=== PATIENT | female | born 1970 | race Caucasian/White ===

== ENCOUNTER → 2016-09-11 | Outpatient (CLI) | payer BC ==
--- NOTE | 2016-09-11 16:23 | DIAGNOSTIC IMAGING REPORT ---
PELVIC COMPLETE NON OB CLINICAL HISTORY: PELVIC PAIN PAIN COMPARISON STUDY: None FINDINGS: The uterus measured 11 cm. Small uterine fibroid measuring 1.5 cm The endometrial stripe measured 1.1 cm. The right ovary measured 3.5 cm with normal vascular flow. The left ovary measured 3.7 cm with normal vascular flow. 2.5 segment left ovarian cyst. There is no ultrasonographic evidence of ovarian torsion. It should be noted that ovarian torsion can be present with normal Doppler ultrasonographic findings. There was no evidence of pathologic free pelvic fluid. IMPRESSION: 1. 2.5 cm left ovarian cyst. 2. Small uterine fibroid. 3. Otherwise negative study The above report was generated using voice recognition software. It may contain grammatical, syntax or spelling errors. Electronically signed by: Israel Capellan M.D. 09/11/2016 4:22 PM Dictated Date/Time: 09/11/2016 4:21 PM
== END | disposition home or self-care (01) ==
LOC: C.ULTR 15:22
PROVIDERS: ATTEND Nurse Practitioner
DX: R10.2 Pelvic and perineal pain (principal)

== ENCOUNTER 2017-07-11 17:45 | Inpatient (IN) | payer OTHER ==
[~2017-07-11] VITALS: Ht 160 cm; Wt 81.8 kg
[2017-07-11 21:50] VITALS: Ht 160 cm; Wt 81.8 kg
--- NOTE | 2017-07-11 22:17 | Pre-Operative Consultation ---
History General Date of Service: July 11, 2017. HPI HPI: The patient is a 47 year old female being seen for for incarcerated incisional hernia. She has had hernia chronically after midline incision for appendectomy years ago. She began having left side abdominal pain beginning yesterday associated with nausea without vomiting. She has had chronic pain from a left ovarian cyst and thought this episode was from the cyst. She has no urinary symptoms. A CT scan shows a loop of colon in her incisional hernia. Historian: patient Procedure Urgency: Acute Risk Assessment Daily beta mendy use?: No Medical & Surgical History Past Medical History: anxiety, ovarian cyst (L) Past Surgical History: adenoidectomy, appendectomy, cholecystectomy, tonsillectomy, tubal ligation Family History Family History: no pertinent family hx Social History Hx Tobacco Use In Past Year?: No Smoking Status: Never Smoker Alcohol: occasionally Drug Use: none Housing status: lives with family Allergies Allergies: Coded Allergies: Codeine (Verified Allergy, Intermediate, GI SYMPTOMS, 07/11/17) nausea Uncoded Allergies: N (Allergy, Unknown, 04/08/02) NKA (Allergy, Unknown, 04/08/02) Review of Systems Review of Systems Constitutional: denies chills, denies diaphoresis, denies fever, denies weakness Eyes: reports: no symptoms ENT: reports: no symptoms reported Cardiovascular: denies: chest pain, chest tightness, chest pressure, palpitations, syncope Respiratory: denies: cough, orthopnea, short of breath, stridor, cyanosis Gastrointestinal: abdominal pain, denies constipation, denies diarrhea, nausea , denies vomiting Genitourinary - Female: reports: no symptoms Musculoskeletal: denies back pain, denies joint pain, denies joint swelling, denies muscle stiffness, denies neck pain Integumentary: denies change in hair/nails, denies dryness, denies lumps, denies rash Neurologic: reports: no symptoms Psychiatric: reports: anxiety Endocrine: no symptoms Hematologic / Lymphatic: no symptoms Allergic / Immunologic: no symptoms Physical Exam Physical Exam General Appearance: + WD/WN, No distress Ears, Nose, Throat: + normal ENT inspection Neck: No abnormal inspection, No tracheal deviation, No lymphadenophy, No stiffness, No tenderness Respiratory: No chest tenderness, No decreased breath sounds, No rhonchi, No stridor, No wheezing Cardiovascular: No tachycardia, No gallop/S3, No diastolic murmur, No gallop/S4 , No bradycardia, No systolic murmur Abdomen: + tenderness (mild), + hernia, + other (hernia reduced), No abnormal bowel sounds, No distension Extremities: No deformity, No swelling, No calf tenderness, No inflammation Neurologic/Psychiatric: No motor deficit/weakness, No disorientation, No sensory deficit Skin Characteristics: No abnormal color, No diaphoresis, No pallor, No jaundice , No rash Impression Assessment and Plan Assessment and Plan IIncisional hernia -IVF -NPO -would likely recommend outpatient reoair if does well clinically -KUB in AM
[2017-07-11 22:35] VITALS: BP 121/85; PULSE 69; TEMP 36.7; O2SAT 97
[2017-07-11] MEDS ORDERED: IBUP-103 PO (22:50)
[2017-07-11] MEDS ORDERED: ULT50 PO (22:50)
[2017-07-11] MEDS ORDERED: LORAZEPAM INJ 0.5 MG in SYRINGE 0.75 ML IV PRN (23:00)
[2017-07-11] MEDS ORDERED: ACETAMINOPHEN 325 MG TAB PO PRN (23:00)
[2017-07-11] MEDS ORDERED: TRAMADOL HCL 50 MG TAB PO PRN (23:00)
[2017-07-11] MEDS ORDERED: PROCHLORPERAZINE INJ 5 MG in SYRINGE 4 ML IV PRN (23:00)
[2017-07-11] MEDS ORDERED: LORAZEPAM 2 MG/ML 1 ML VIAL IV PRN (23:00)
[2017-07-11] MEDS: NSS + 20MEQ KCL 1000ML 1,000 ML IV SCH (23:18)
[2017-07-12] MEDS: KETOROLAC TROMETHAMINE 30 MG/ML VIAL IV PRN (01:40)
--- NOTE | 2017-07-12 06:38 | HISTORY & PHYSICAL EXAMINATION ---
DATE OF ADMISSION: 07/11/2017 PRIMARY CARE PHYSICIAN: Dr. Henderson. CHIEF COMPLAINT: Incarcerated hernia. HISTORY OF PRESENT ILLNESS: History obtained from patient and records. Medical history significant for past tobacco abuse. Today patient had achy left-sided abdominal pain. Thought it was her ovarian cyst for which she takes OCPs. Worse than usual. Some nausea, no emesis. Patient seen at [facility]. A CAT scan of the abdomen and pelvis showed a 3 cm left lower quadrant spigelian hernia containing loop of descending colon, no obstruction, mild inflammation. Incarceration should be considered. Enlarging uterine masses. Patient transferred to [facility] for Surgery evaluation. Patient currently comfortable in the room. MEDICAL HISTORY: As above. SURGERIES: She has had appendectomy, tonsillectomy, tubal ligation, varicose vein surgery. HOME MEDICATIONS: Include Ultram, Sprintec, multivitamins. ALLERGIES: ALLERGIC TO CODEINE. FAMILY HISTORY: There is a family history of migraine, diabetes. PERSONAL AND SOCIAL HISTORY: Past tobacco use. No current ETOH intake, kiln stoker. REVIEW OF SYSTEMS: As per HPI, all 10 systems reviewed. All other ROS negative. PHYSICAL EXAMINATION: VITAL SIGNS: Blood pressure was noted to be 121/85, pulse rate 90, RR 18 T 37 O2 sats 94 room air. GENERAL: Noted to be pleasant, no respiratory distress, obese. SKIN: Normal color, warm. HEENT: [place] palpebral conjunctivae. No ptosis. Dry mucosa. NECK: Short, supple. CHEST: Decreased effort. No tenderness HEART: Regular rate and rhythm, no murmur. ABDOMEN: Some distention, abdominal striae noted, minimal left lower quadrant tenderness EXTREMITIES: Minimal LE edema. No tenderness. No other gross deformities NEUROLOGIC: Coherent. No gross focality. LABORATORY DATA: Labs from [facility] (07/11/17) hemoglobin 14, hematocrit 39.2, white blood cell count 5.8, platelets 249. Sodium noted to be 139, potassium 3.7, chloride 107, CO2 of 25, creatinine 0.8, glucose 102. LFTs normal, lipase normal. UA, negative WBC. CT abdomen and pelvis as above ASSESSMENT: 1. Abdominal pain, possible incarcerated hernia on CT. Patient is currently comfortable. 2. Ovarian cyst, on OCP 3. past tobacco abuse. PLAN: [facility] analgesia Surgery eval. RE abd pain, abn CT (Patient already seen by Dr. Varma, surgeon concrete rubber. He recommends NPO status for now, repeat KUB x-ray in AM) DVT prophylaxis, SCDs RE possible surgery. Full code. MTDD
[2017-07-12 07:48] VITALS: BP 111/75; PULSE 75; TEMP 37; O2SAT 96
[2017-07-12 08:40] LABS: EOS ABS # 0.04 K/uL (0-0.5); HEMATOCRIT 34.9 % (37-47); HEMOGLOBIN 11.8 g/dL (12.0-16.0); LYMPH % 24.5 %; LYMPH ABS # 0.95 K/uL (1.2-3.4); MEAN CELL VOLUME 88.8 fL (80-100); MEAN CORPUSCULAR HGB CONC 33.8 g/dl (32-36); MEAN PLATELET VOLUME 10.5 fL (7.4-10.4); MONO % 6.4 %; MONO ABS # 0.25 K/uL (0.11-0.59); NEUT % 68.1 %; NEUT ABS # 2.64 K/uL (1.4-6.5); PLATELET COUNT 195 K/uL (130-400); RED CELL DISTRIBUTION WIDTH SD 42.1 fL (36.4-46.3); WHITE BLOOD COUNT 3.88 K/uL (4.8-10.8)
--- NOTE | 2017-07-12 08:49 | DIAGNOSTIC IMAGING REPORT ---
KUB HISTORY: Small bowel obstruction. COMPARISON: None. FINDINGS: The bowel gas pattern is unremarkable. There are no dilated loops of small bowel to suggest an obstruction. No renal calculi. No ureteral calculi. No pneumoperitoneum or pneumatosis. Prior cholecystectomy. Moderate well-formed stool seen within the proximal colon. IMPRESSION: Unremarkable bowel gas pattern. No evidence for bowel obstruction. Electronically signed by: Bala Diop M.D. 07/12/2017 8:48 AM Dictated Date/Time: 07/12/2017 8:47 AM
[2017-07-12 09:19] LABS: CALCIUM 8.1 mg/dl (8.5-10.1); CREATININE 0.59 mg/dl (0.60-1.20); POTASSIUM 3.8 mmol/L (3.5-5.1)
--- NOTE | 2017-07-12 09:34 | Surgery Progress Note ---
Surgery Progress Note Date of Service July 12, 2017. Subjective Post OP Day: HD 2 + feeling well, + complaints (pain resolving), + flatus, + diet (npo), No nausea , No vomiting Objective Vital Signs: Date Time Temp Pulse Resp B/P (MAP) Pulse Ox O2 Delivery O2 Flow Rate FiO2 07/12/17 08:05 Room Air 07/12/17 07:48 37.0 75 18 111/75 (87) 96 Room Air 07/11/17 23:15 Room Air 07/11/17 22:35 36.7 69 17 121/85 (97) 97 Room Air 07/11/17 21:50 Room Air General Appearance: WD/WN, no apparent distress Head: normocephalic, atraumatic Neck: supple, trachea midline Respiratory/Chest: lungs clear Cardiovascular: regular rate, rhythm, no gallop, no murmur Abdomen: normal bowel sounds, non distended, soft, + tenderness (mild), + pertinent finding (reducible hernias) Extremities: non-tender, no pedal edema Laboratory Results: Results Past 24 Hours Test 07/12/17 08:15 Range/Units White Blood Count 3.88 4.8-10.8 K/uL Red Blood Count 3.93 4.2-5.4 M/uL Hemoglobin 11.8 12.0-16.0 g/dL Hematocrit 34.9 37-47 % Mean Corpuscular Volume 88.8 80-100 fL Mean Corpuscular Hemoglobin 30.0 25-34 pg Mean Corpuscular Hemoglobin Concent 33.8 32-36 g/dl Platelet Count 195 130-400 K/uL Mean Platelet Volume 10.5 7.4-10.4 fL Neutrophils (%) (Auto) 68.1 % Lymphocytes (%) (Auto) 24.5 % Monocytes (%) (Auto) 6.4 % Eosinophils (%) (Auto) 1.0 % Basophils (%) (Auto) 0.0 % Neutrophils # (Auto) 2.64 1.4-6.5 K/uL Lymphocytes # (Auto) 0.95 1.2-3.4 K/uL Monocytes # (Auto) 0.25 0.11-0.59 K/uL Eosinophils # (Auto) 0.04 0-0.5 K/uL Basophils # (Auto) 0.00 0-0.2 K/uL RDW Standard Deviation 42.1 36.4-46.3 fL RDW Coefficient of Variation 13.0 11.5-14.5 % Immature Granulocyte % (Auto) 0.0 % Immature Granulocyte # (Auto) 0.00 0.00-0.02 K/uL Sodium Level 141 136-145 mmol/L Potassium Level 3.8 3.5-5.1 mmol/L Chloride Level 112 98-107 mmol/L Carbon Dioxide Level 22 21-32 mmol/L Anion Gap 7.0 3-11 mmol/L Blood Urea Nitrogen 9 7-18 mg/dl Creatinine 0.59 0.60-1.20 mg/dl Est Creatinine Clear Calc Drug Dose 118.1 ml/min Estimated GFR () 125.6 Estimated GFR (Non- 108.4 BUN/Creatinine Ratio 15.5 10-20 Random Glucose 86 70-99 mg/dl Calcium Level 8.1 8.5-10.1 mg/dl Magnesium Level 1.8 1.8-2.4 mg/dl Thyroid Stimulating Hormone (TSH) 2.140 0.300-4.500 uIu/ml Assessment & Plan incisional hernia; incarcerated ann marie reduced -begin diet -can fix this hospitalization early in the week or can see as outpatient -progress; worry alittle about re-incarceration if discharge
[2017-07-12] MEDS: NSS + 20MEQ KCL 1000ML 1,000 ML IV SCH (13:04)
[2017-07-12 15:09] VITALS: BP 111/72; PULSE 68; TEMP 36.8; O2SAT 97
[2017-07-12] MEDS ORDERED: DiphenhydrAMINE INJ 12.5 MG in SYRINGE 0 ML IV PRN (16:00)
--- NOTE | 2017-07-12 16:06 | Progress Note ---
Internal Med Progress Note Date of Service: July 12, 2017. Provider Documentation: SUBJECTIVE: No acute distress. Patient denies acute abdominal pain. Patient denies vomiting today. Denies problems with bowel movements or with urination. Patient reports that the redness on her face is new with some itching. The redness of the face ( rash) was present this AM but patient reports that it did not seem noticeable to her until now in the afternoon. Patient denies history of acne. OBJECTIVE: Exam: General- no acute distress Face - face has redness and bumps similar to rosacea or acne Eyes-EOMI ENT-nontender, no rash of neck Lungs- CTABL, no wheezing Heart- Regular rate Abdomen-soft, nontender, + bowel sounds, no apparent palpable hernia on exam but patient points that the problem is left lower quadrant of abdomen towards the groin from before Extremities- no edema Neuro- awake and alert ASSESSMENT & PLAN: This is a 47 year old Patient who was transferred from [facility] with concerns of hernia complication such as incarceration Patient was admitted by night time hospitalist Patient had KUB performed on 07/12/17 in the AM and rather unremarkable imaging The bowel gas pattern is unremarkable. There are no dilated loops of small bowel to suggest an obstruction. No renal calculi. No ureteral calculi. No pneumoperitoneum or pneumatosis. Prior cholecystectomy. Moderate well-formed stool seen within the proximal colon. When assessed by hospitalist today patient did not have obvious abdominal discomfort and the the hernia is not palpable on physical exam. Patient was seen by General surgery and there are no definitive plans for hernia repair at this time. Will continue to provider supportive care to the patient if further abdominal symptoms and General surgery continues to follow. Patient also noted to have rash of the face since the AM of 07/12/17. May be drug related rash. Patient reports receiving morphine and Tramadol from [facility]. No active morphine on current medication list. Will hold Tramadol at this time. Continue other medications for pain control such as acetaminophen and Toradol. Give Compazine prn if nausea. Ideally if patient continues to be comfortable, can remove compazine to remove further variable of possible medications side effects. Give Benadryl to treat face rash or itch Diet advanced DVT ppx with SCD Vital Signs: Date Time Temp Pulse Resp B/P (MAP) Pulse Ox O2 Delivery O2 Flow Rate FiO2 07/12/17 15:30 Room Air 07/12/17 15:09 36.8 68 16 111/72 (85) 97 Room Air 07/12/17 08:05 Room Air 07/12/17 07:48 37.0 75 18 111/75 (87) 96 Room Air 07/11/17 23:15 Room Air 07/11/17 22:35 36.7 69 17 121/85 (97) 97 Room Air 07/11/17 21:50 Room Air Lab Results: Results Past 24 Hours Test 07/12/17 08:15 Range/Units White Blood Count 3.88 4.8-10.8 K/uL Red Blood Count 3.93 4.2-5.4 M/uL Hemoglobin 11.8 12.0-16.0 g/dL Hematocrit 34.9 37-47 % Mean Corpuscular Volume 88.8 80-100 fL Mean Corpuscular Hemoglobin 30.0 25-34 pg Mean Corpuscular Hemoglobin Concent 33.8 32-36 g/dl Platelet Count 195 130-400 K/uL Mean Platelet Volume 10.5 7.4-10.4 fL Neutrophils (%) (Auto) 68.1 % Lymphocytes (%) (Auto) 24.5 % Monocytes (%) (Auto) 6.4 % Eosinophils (%) (Auto) 1.0 % Basophils (%) (Auto) 0.0 % Neutrophils # (Auto) 2.64 1.4-6.5 K/uL Lymphocytes # (Auto) 0.95 1.2-3.4 K/uL Monocytes # (Auto) 0.25 0.11-0.59 K/uL Eosinophils # (Auto) 0.04 0-0.5 K/uL Basophils # (Auto) 0.00 0-0.2 K/uL RDW Standard Deviation 42.1 36.4-46.3 fL RDW Coefficient of Variation 13.0 11.5-14.5 % Immature Granulocyte % (Auto) 0.0 % Immature Granulocyte # (Auto) 0.00 0.00-0.02 K/uL Sodium Level 141 136-145 mmol/L Potassium Level 3.8 3.5-5.1 mmol/L Chloride Level 112 98-107 mmol/L Carbon Dioxide Level 22 21-32 mmol/L Anion Gap 7.0 3-11 mmol/L Blood Urea Nitrogen 9 7-18 mg/dl Creatinine 0.59 0.60-1.20 mg/dl Est Creatinine Clear Calc Drug Dose 118.1 ml/min Estimated GFR () 125.6 Estimated GFR (Non- 108.4 BUN/Creatinine Ratio 15.5 10-20 Random Glucose 86 70-99 mg/dl Calcium Level 8.1 8.5-10.1 mg/dl Magnesium Level 1.8 1.8-2.4 mg/dl Thyroid Stimulating Hormone (TSH) 2.140 0.300-4.500 uIu/ml
[2017-07-12] MEDS: SODIUM CHLORIDE 0.9% 1000ML 1,000 ML IV SCH (16:15)
[2017-07-12] MEDS: DiphenhydrAMINE HCL 50 MG/ML VIAL IV PRN (23:14)
[2017-07-12 23:17] VITALS: BP 95/60; PULSE 67; TEMP 37; O2SAT 97
[2017-07-13] MEDS: SODIUM CHLORIDE 0.9% 1000ML 1,000 ML IV SCH ×2 (03:27→19:43)
[2017-07-13 07:22] VITALS: BP 121/77; PULSE 73; TEMP 37; O2SAT 97
[2017-07-13 07:59] LABS: BASO % 0.2 %; BASO ABS # 0.01 K/uL (0-0.2); EOS % 1.2 %; EOS ABS # 0.05 K/uL (0-0.5); HEMATOCRIT 36.3 % (37-47); HEMOGLOBIN 12.2 g/dL (12.0-16.0); IG# 0.01 K/uL (0.00-0.02); LYMPH % 26.4 %; LYMPH ABS # 1.12 K/uL (1.2-3.4); MEAN CELL VOLUME 90.3 fL (80-100); MEAN CORPUSCULAR HEMOGLOBIN 30.3 pg (25-34); MEAN PLATELET VOLUME 10.5 fL (7.4-10.4); MONO % 3.3 %; MONO ABS # 0.14 K/uL (0.11-0.59); NEUT % 68.7 %; NEUT ABS # 2.92 K/uL (1.4-6.5); PLATELET COUNT 206 K/uL (130-400); RED CELL DISTRIBUTION WIDTH SD 43.5 fL (36.4-46.3); WHITE BLOOD COUNT 4.25 K/uL (4.8-10.8)
[2017-07-13 08:14] LABS: MEAN CORPUSCULAR HGB CONC 33.6 g/dl (32-36)
[2017-07-13 08:20] LABS: ALBUMIN 3.1 gm/dl (3.4-5.0); CALCIUM 7.9 mg/dl (8.5-10.1); CREATININE 0.63 mg/dl (0.60-1.20); POTASSIUM 3.9 mmol/L (3.5-5.1); TOTAL PROTEIN 6.1 gm/dl (6.4-8.2)
[2017-07-13 08:30] VITALS: O2SAT 97
[2017-07-13] MEDS: MAGNESIUM SULFATE 1GM / D5W 100 ML IV SCH ×2 (09:39→11:43)
--- NOTE | 2017-07-13 11:48 | Surgery Progress Note ---
Surgery Progress Note Date of Service July 13, 2017. Subjective Post OP Day: HD 3 + feeling well, + complaints (some pain), + flatus, No nausea, No vomiting Objective Vital Signs: Date Time Temp Pulse Resp B/P (MAP) Pulse Ox O2 Delivery O2 Flow Rate FiO2 07/13/17 07:22 37.0 73 18 121/77 (92) 97 Room Air 07/12/17 23:17 37.0 67 14 95/60 (72) 97 Room Air 07/12/17 20:10 Room Air 07/12/17 15:30 Room Air 07/12/17 15:09 36.8 68 16 111/72 (85) 97 Room Air General Appearance: WD/WN, no apparent distress Head: normocephalic, atraumatic Neck: supple Respiratory/Chest: chest non-tender, lungs clear Cardiovascular: regular rate, rhythm, no gallop, no murmur Abdomen: normal bowel sounds, non distended, soft, + tenderness (mild) Extremities: normal range of motion, no pedal edema Laboratory Results: Results Past 24 Hours Test 07/13/17 07:45 Range/Units White Blood Count 4.25 4.8-10.8 K/uL Red Blood Count 4.02 4.2-5.4 M/uL Hemoglobin 12.2 12.0-16.0 g/dL Hematocrit 36.3 37-47 % Mean Corpuscular Volume 90.3 80-100 fL Mean Corpuscular Hemoglobin 30.3 25-34 pg Mean Corpuscular Hemoglobin Concent 33.6 32-36 g/dl Platelet Count 206 130-400 K/uL Mean Platelet Volume 10.5 7.4-10.4 fL Neutrophils (%) (Auto) 68.7 % Lymphocytes (%) (Auto) 26.4 % Monocytes (%) (Auto) 3.3 % Eosinophils (%) (Auto) 1.2 % Basophils (%) (Auto) 0.2 % Neutrophils # (Auto) 2.92 1.4-6.5 K/uL Lymphocytes # (Auto) 1.12 1.2-3.4 K/uL Monocytes # (Auto) 0.14 0.11-0.59 K/uL Eosinophils # (Auto) 0.05 0-0.5 K/uL Basophils # (Auto) 0.01 0-0.2 K/uL RDW Standard Deviation 43.5 36.4-46.3 fL RDW Coefficient of Variation 13.0 11.5-14.5 % Immature Granulocyte % (Auto) 0.2 % Immature Granulocyte # (Auto) 0.01 0.00-0.02 K/uL Sodium Level 140 136-145 mmol/L Potassium Level 3.9 3.5-5.1 mmol/L Chloride Level 109 98-107 mmol/L Carbon Dioxide Level 26 21-32 mmol/L Anion Gap 6.0 3-11 mmol/L Blood Urea Nitrogen 7 7-18 mg/dl Creatinine 0.63 0.60-1.20 mg/dl Est Creatinine Clear Calc Drug Dose 110.6 ml/min Estimated GFR () 122.9 Estimated GFR (Non- 106.1 BUN/Creatinine Ratio 11.0 10-20 Random Glucose 128 70-99 mg/dl Calcium Level 7.9 8.5-10.1 mg/dl Magnesium Level 1.8 1.8-2.4 mg/dl Total Bilirubin 0.3 0.2-1 mg/dl Aspartate Amino Transf (AST/SGOT) 18 15-37 U/L Alanine Aminotransferase (ALT/SGPT) 31 12-78 U/L Alkaline Phosphatase 57 45-117 U/L Total Protein 6.1 6.4-8.2 gm/dl Albumin 3.1 3.4-5.0 gm/dl Globulin 3.0 2.5-4.0 gm/dl Albumin/Globulin Ratio 1.0 0.9-2 Assessment & Plan incisional hernia; incarcerated now reduced -NPO past [place] -open incisional hernia tomorrow -medically cleared -Dr Jose will see in AM
[2017-07-13 14:00] VITALS: BP 144/76; PULSE 72; TEMP 37.2; O2SAT 94
[2017-07-13 15:15] VITALS: BP 118/76; PULSE 66; TEMP 36.8; O2SAT 97
[2017-07-13] MEDS ORDERED: NURSING VERBAL MED ORDER ONE (20:00)
--- NOTE | 2017-07-13 20:10 | Progress Note ---
Internal Med Progress Note Date of Service: July 13, 2017. Provider Documentation: SUBJECTIVE: No acute distress. Patient denies acute abdominal pain. Patient reports that the facial rash has improved OBJECTIVE: Exam: General- no acute distress Face - face has redness and bumps similar to rosacea or acne with less redness today Eyes-EOMI ENT-nontender, no rash of neck Lungs- CTABL, no wheezing Heart- Regular rate Abdomen-soft, nontender, + bowel sounds, no apparent palpable hernia on exam Extremities- no edema Neuro- awake and alert ASSESSMENT & PLAN: This is a 47 year old Patient who was transferred from [facility] with concerns of hernia complication such as incarceration Patient had KUB performed on 07/12/17 in the AM and rather unremarkable imaging The bowel gas pattern is unremarkable. There are no dilated loops of small bowel to suggest an obstruction. No renal calculi. No ureteral calculi. No pneumoperitoneum or pneumatosis. Prior cholecystectomy. Moderate well-formed stool seen within the proximal colon. In the past 2 days when assessed by hospitalist, patient has not been in acute abdominal discomfort and hernia is not palpable General surgery now has Patient NPO after midnight for open incisional hernia tomorrow for diagnosis of (incisional hernia; incarcerated now reduced) Patient also noted to have rash of the face since the AM of 07/12/17. May be drug related rash. Patient reports receiving morphine and Tramadol from [facility]. No active morphine on current medication list. Tramadol held at this time. Continue other medications for pain control such as acetaminophen and Toradol. Hold Compazine Benadryl to treat face rash or itch incisional hernia; incarcerated now reduced DVT ppx with SCD Vital Signs: Date Time Temp Pulse Resp B/P (MAP) Pulse Ox O2 Delivery O2 Flow Rate FiO2 07/13/17 16:00 Room Air 07/13/17 15:15 36.8 66 17 118/76 (90) 97 Room Air 07/13/17 08:30 97 Room Air 07/13/17 07:22 37.0 73 18 121/77 (92) 97 Room Air 07/12/17 23:17 37.0 67 14 95/60 (72) 97 Room Air 07/12/17 20:10 Room Air Lab Results: Results Past 24 Hours Test 07/13/17 07:45 Range/Units White Blood Count 4.25 4.8-10.8 K/uL Red Blood Count 4.02 4.2-5.4 M/uL Hemoglobin 12.2 12.0-16.0 g/dL Hematocrit 36.3 37-47 % Mean Corpuscular Volume 90.3 80-100 fL Mean Corpuscular Hemoglobin 30.3 25-34 pg Mean Corpuscular Hemoglobin Concent 33.6 32-36 g/dl Platelet Count 206 130-400 K/uL Mean Platelet Volume 10.5 7.4-10.4 fL Neutrophils (%) (Auto) 68.7 % Lymphocytes (%) (Auto) 26.4 % Monocytes (%) (Auto) 3.3 % Eosinophils (%) (Auto) 1.2 % Basophils (%) (Auto) 0.2 % Neutrophils # (Auto) 2.92 1.4-6.5 K/uL Lymphocytes # (Auto) 1.12 1.2-3.4 K/uL Monocytes # (Auto) 0.14 0.11-0.59 K/uL Eosinophils # (Auto) 0.05 0-0.5 K/uL Basophils # (Auto) 0.01 0-0.2 K/uL RDW Standard Deviation 43.5 36.4-46.3 fL RDW Coefficient of Variation 13.0 11.5-14.5 % Immature Granulocyte % (Auto) 0.2 % Immature Granulocyte # (Auto) 0.01 0.00-0.02 K/uL Sodium Level 140 136-145 mmol/L Potassium Level 3.9 3.5-5.1 mmol/L Chloride Level 109 98-107 mmol/L Carbon Dioxide Level 26 21-32 mmol/L Anion Gap 6.0 3-11 mmol/L Blood Urea Nitrogen 7 7-18 mg/dl Creatinine 0.63 0.60-1.20 mg/dl Est Creatinine Clear Calc Drug Dose 110.6 ml/min Estimated GFR () 122.9 Estimated GFR (Non- 106.1 BUN/Creatinine Ratio 11.0 10-20 Random Glucose 128 70-99 mg/dl Calcium Level 7.9 8.5-10.1 mg/dl Magnesium Level 1.8 1.8-2.4 mg/dl Total Bilirubin 0.3 0.2-1 mg/dl Aspartate Amino Transf (AST/SGOT) 18 15-37 U/L Alanine Aminotransferase (ALT/SGPT) 31 12-78 U/L Alkaline Phosphatase 57 45-117 U/L Total Protein 6.1 6.4-8.2 gm/dl Albumin 3.1 3.4-5.0 gm/dl Globulin 3.0 2.5-4.0 gm/dl Albumin/Globulin Ratio 1.0 0.9-2
[2017-07-13] MEDS: DiphenhydrAMINE HCL 50 MG/ML VIAL IV PRN (22:26)
[2017-07-13] MEDS ORDERED: PROCHLORPERAZINE INJ 5 MG in SYRINGE 4 ML IV PRN (23:15)
[2017-07-13 23:20] VITALS: BP 115/74; PULSE 66; TEMP 36.7; O2SAT 97
[2017-07-14] VITALS (10 sets, daily range): BP systolic 102–144; BP diastolic 63–78; PULSE 68–102; TEMP 36.6–37.2; O2SAT 92–97
[2017-07-14 05:37] LABS: BASO % 0.2 %; BASO ABS # 0.01 K/uL (0-0.2); EOS % 1.1 %; EOS ABS # 0.05 K/uL (0-0.5); HEMATOCRIT 34.9 % (37-47); HEMOGLOBIN 11.6 g/dL (12.0-16.0); IG# 0.01 K/uL (0.00-0.02); LYMPH % 27.7 %; LYMPH ABS # 1.28 K/uL (1.2-3.4); MEAN CELL VOLUME 89.9 fL (80-100); MEAN CORPUSCULAR HEMOGLOBIN 29.9 pg (25-34); MEAN CORPUSCULAR HGB CONC 33.2 g/dl (32-36); MEAN PLATELET VOLUME 10.2 fL (7.4-10.4); MONO % 6.7 %; MONO ABS # 0.31 K/uL (0.11-0.59); NEUT % 64.1 %; NEUT ABS # 2.96 K/uL (1.4-6.5); PLATELET COUNT 198 K/uL (130-400); RED CELL DISTRIBUTION WIDTH SD 42.9 fL (36.4-46.3); WHITE BLOOD COUNT 4.62 K/uL (4.8-10.8)
[2017-07-14] MEDS ORDERED: CEFAZOLIN 2000MG IV PUSH 15 ML IV SCH (06:00)
[2017-07-14] MEDS ORDERED: CEFAZOLIN IV 2,000 MG in DEXTROSE 5% 50ML 50 ML IV SCH (06:00)
[2017-07-14] MEDS: SODIUM CHLORIDE 0.9% 1000ML 1,000 ML IV SCH ×2 (08:59→15:54)
--- NOTE | 2017-07-14 10:17 | Surgery Progress Note ---
Surgery Progress Note Date of Service July 14, 2017. Subjective The patient is a 47 year old female being seen for for incarcerated spigelian hernia on LLQ. pt is still have some LLQ pain, pt denies nausea, no vomiting, no fever, Objective Vital Signs: Date Time Temp Pulse Resp B/P (MAP) Pulse Ox O2 Delivery O2 Flow Rate FiO2 07/14/17 07:30 Room Air 07/14/17 07:18 36.8 73 16 103/68 (80) 97 Room Air 07/13/17 23:30 Room Air 07/13/17 23:20 36.7 66 18 115/74 (88) 97 Room Air 07/13/17 16:00 Room Air 07/13/17 15:15 36.8 66 17 118/76 (90) 97 Room Air General Appearance: WD/WN, no apparent distress Head: normocephalic Neck: supple, no JVD Respiratory/Chest: chest non-tender, lungs clear Cardiovascular: regular rate, rhythm, no edema, no gallop, no JVD, no murmur Abdomen: normal bowel sounds, non distended, soft, no organomegaly, + tenderness (at LLQ , no rebound pain, ) Extremities: normal range of motion, non-tender, normal inspection Laboratory Results: Results Past 24 Hours Test 07/14/17 05:23 Range/Units White Blood Count 4.62 4.8-10.8 K/uL Red Blood Count 3.88 4.2-5.4 M/uL Hemoglobin 11.6 12.0-16.0 g/dL Hematocrit 34.9 37-47 % Mean Corpuscular Volume 89.9 80-100 fL Mean Corpuscular Hemoglobin 29.9 25-34 pg Mean Corpuscular Hemoglobin Concent 33.2 32-36 g/dl Platelet Count 198 130-400 K/uL Mean Platelet Volume 10.2 7.4-10.4 fL Neutrophils (%) (Auto) 64.1 % Lymphocytes (%) (Auto) 27.7 % Monocytes (%) (Auto) 6.7 % Eosinophils (%) (Auto) 1.1 % Basophils (%) (Auto) 0.2 % Neutrophils # (Auto) 2.96 1.4-6.5 K/uL Lymphocytes # (Auto) 1.28 1.2-3.4 K/uL Monocytes # (Auto) 0.31 0.11-0.59 K/uL Eosinophils # (Auto) 0.05 0-0.5 K/uL Basophils # (Auto) 0.01 0-0.2 K/uL RDW Standard Deviation 42.9 36.4-46.3 fL RDW Coefficient of Variation 13.0 11.5-14.5 % Immature Granulocyte % (Auto) 0.2 % Immature Granulocyte # (Auto) 0.01 0.00-0.02 K/uL Assessment & Plan Assessment: The patient is a 47 year old female being seen for for incarcerated incisional hernia. I reviewed CT scan- Dx spigelian hernia at [facility], contain descending colon, Plan, pt requests to do laparoscopic repair spigelian hernia with mesh, possible open, or bowel resection, D/W benefits, risk sand alternatives of the procedure, the risks- infection, bleeding, injury bowel, complications relate to mesh, hernia recurrence, pt understood, she and her agree with the surgery, I answered all questions,
[2017-07-14] MEDS ORDERED: BACITRACIN OINT 15 GM TUBE ONE (11:03)
[2017-07-14] MEDS ORDERED: LIDOCAINE HCL 1% 20 ML VIAL ONE (11:03)
[2017-07-14] MEDS ORDERED: FENTANYL CITRATE INJ 50 MCG/1 ML 2 ML VIAL ONE ×4 (11:08→12:54)
[2017-07-14] MEDS ORDERED: PROPOFOL IV EMULSION 10 MG/ML 20 ML VIAL ONE (11:08)
[2017-07-14] MEDS ORDERED: LIDOCAINE HCL 2% 2 ML VIAL (20MG/ML) ONE (11:08)
[2017-07-14] MEDS ORDERED: ONDANSETRON INJ 2 MG/ML 2 ML VIAL ONE ×2 (11:08→12:39)
[2017-07-14] MEDS ORDERED: MIDAZOLAM HCL 1 MG/ML 2ML VIAL ONE (11:08)
[2017-07-14] MEDS ORDERED: ACETAMINOPHEN 1000 MG/100 ML IV IV ONE (11:14)
--- NOTE | 2017-07-14 11:16 | History & Physical Bridge Note ---
H&P Re-Evaluation Bridge Note: I have examined the patient, reviewed the History & Physical and in the interval since the performance of the History & Physical I have noted the following changes of clinical significance: No changes noted
[2017-07-14] MEDS ORDERED: BUPIVACAINE 0.5 % 5 MG/1 ML PF 10ML VIAL ONE (11:17)
[2017-07-14] MEDS ORDERED: EpHEDrine SULFATE INJ 50 MG/ML AMP IV PRN (11:30)
[2017-07-14] MEDS ORDERED: NALOXONE HCL 0.4 MG/1 ML VIAL/CARP IV PRN (11:30)
[2017-07-14] MEDS ORDERED: ATROPINE SULFATE 0.1 MG/ML 5ML SYR IV PRN (11:30)
[2017-07-14] MEDS ORDERED: PHENYLEPHRINE 100MCG/ML 5ML SYR IV PRN (11:30)
[2017-07-14] MEDS ORDERED: MEPERIDINE HCL 25 MG/ML CARP IV PRN (11:30)
[2017-07-14] MEDS ORDERED: FLUMAZENIL 0.1 MG/1 ML 10 ML VIAL IV PRN (11:30)
[2017-07-14] MEDS ORDERED: HYDROmorphone INJ 0.5 MG/0.5 ML SYR IV PRN (11:30)
[2017-07-14] MEDS ORDERED: LABETALOL HCL IV 5 MG/ML 20ML IV PRN (11:30)
[2017-07-14] MEDS ORDERED: ONDANSETRON INJ 2 MG/ML 2 ML VIAL IV PRN ×3 (11:30→18:45)
[2017-07-14] MEDS ORDERED: DEXAMETHASONE SOD INJ 4 MG/ML VIAL ONE (12:00)
[2017-07-14] MEDS ORDERED: LABETALOL HCL IV 5 MG/ML 20ML ONE (12:21)
[2017-07-14] MEDS ORDERED: GLYCOPYRROLATE INJ 0.2 MG/ML VIAL ONE (12:36)
[2017-07-14] MEDS ORDERED: ROCURONIUM BROMIDE 10 MG/ML 5 ML VIAL ONE (12:36)
[2017-07-14] MEDS ORDERED: NEOSTIGMINE METHYLSULFATE 5 MG/5 ML SYR ONE (12:36)
--- NOTE | 2017-07-14 12:51 | [facility] Post Operative Brief Note ---
Immediate Operative Summary Operative Date July 14, 2017. Pre-Operative Diagnosis Incarcerated Spigelian Hernia Left Lower Quadrant Post-Operative Diagnosis Same as preop Procedure(s) Performed Laparoscopic Spigelain Hernia Repair with Mesh Surgeon Dr. Jose Industrial Education Instructor Surgeon(s) None Estimated Blood Loss 10 ml Findings Consistent with Post-Op Diagnosis hernia size 2x2cm Fluids (cc crystalloids) 800ml Specimens None per Surgeon Drains None Anesthesia Type General Complication(s) none Disposition Accompanied Pt To Recover: yes Disposition: Recovery Room / PACU
[2017-07-14] MEDS ORDERED: HYDROmorphone INJ 2 MG/ML SYR/VIAL ONE (13:00)
[2017-07-14] MEDS ORDERED: KETOROLAC TROMETHAMINE 30 MG/ML VIAL IV STA (13:08)
[2017-07-14] MEDS: KETOROLAC TROMETHAMINE 30 MG/ML VIAL IV PRN (13:09)
[2017-07-14] MEDS ORDERED: PROMETHAZINE HCL INJ 12.5 MG in SODIUM CHLORIDE 0.9% 50ML 50 ML IV STA (13:14)
[2017-07-14] MEDS: FENTANYL CITRATE INJ 50 MCG/1 ML 2 ML VIAL IV PRN ×4 (13:23→13:39)
--- NOTE | 2017-07-14 13:56 | Anesthesiology Progress Note ---
Anesthesia Post Op Note Date & Time July 14, 2017 at 13:56 Vital Signs Pain Intensity: 4.0 Vital Signs Past 12 Hours Date Time Temp Pulse Resp B/P (MAP) Pulse Ox O2 Delivery O2 Flow Rate FiO2 07/14/17 13:40 36.5 66 16 113/76 99 Nasal Cannula 3 07/14/17 13:30 70 16 137/87 99 Nasal Cannula 3 07/14/17 13:20 64 16 156/90 99 Oxymask 10 07/14/17 13:10 68 16 168/90 98 Oxymask 10 07/14/17 13:03 37.2 76 16 155/88 98 Oxymask 10 07/14/17 07:30 Room Air 07/14/17 07:18 36.8 73 16 103/68 (80) 97 Room Air Notes Mental Status: alert / awake / arousable, participated in evaluation Pt Amnestic to Procedure: Yes Nausea / Vomiting: adequately controlled Pain: adequately controlled Airway Patency, RR, SpO2: stable & adequate BP & HR: stable & adequate Hydration State: stable & adequate Anesthetic Complications: no major complications apparent
--- NOTE | 2017-07-14 15:01 | OPERATIVE REPORT ---
DATE OF OPERATION: 07/14/2017 PREOPERATIVE DIAGNOSIS: Incarcerated abdominal hernia. POSTOPERATIVE DIAGNOSIS: Incarcerated spigelian hernia. OPERATION: Laparoscopy, repair of spigelian hernia with mesh. SURGEON: Hannah Jose MD ANESTHESIA: General. ESTIMATED BLOOD LOSS: About 10 mL. FINDINGS: Incarcerated spigelian hernia. COMPLICATIONS: None. INDICATIONS FOR THE PROCEDURE: This is a 47-year-old female who is admitted to hospital for an incarcerated abdominal hernia. The patient will be required to do laparoscopic repair of abdominal hernia with mesh, possible open. I did talk to the patient about the benefit and risk, alternate procedure. I indicated the risks may include but not limited such as bleeding, infection, hernia recurrence, injury to bowel, patient understands. She signed informed consent and I answered all questions. DETAILS OF PROCEDURE: We brought the patient to the OR, put the patient in the supine position. The patient received SCD on bilateral legs to prevent DVT. Also, the patient received 2 g Ancef IV for prophylactic antibiotic. The patient received general anesthesia without difficulty. The patient received Hernandez catheter insertion. The abdomen was prepped and draped in routine sterile fashion. After time out, I made a small midline incision about 2 cm just above umbilical, opened the fascia and opened the peritoneum. Under direct vision, put a Katie trocar in, connected to CO2 to create pneumoperitoneum. Flow rate at 6 L per minute. Pressure not more than 14 mmHg. Once we get a nice pneumoperitoneum, we put another two 5 mm trocar on the right lower quadrant area. Once we put the camera in under direct vision and once all trocars in and then we found the patient had the incarcerated spigelian hernia on the left lower quadrant area and there are some descending colon stuck to the hernia. We turned the descending colon back to abdominal cavity. Rechecked and no ischemic bowel and the bowel was pink and then we found the patient had a hernia, neck size about 2 x 2 cm. Then, I chose a 10 cm x 12 cm Prolene mesh to repair and then, we used a ashley to tuck the mesh, to pull out through the hernia hole. Rechecked if the mesh had seated nicely, no tension and once we tucked the mesh in the abdominal wall and rechecked, no active bleeding, no injury to the bowel. Then we removed all trocar under direct vision. No active bleeding from trocar sites. The pneumoperitoneum was released. I then closed the incision at fascial layer by using #1 Vicryl [id number] x2, closed subcutaneous layer by using 2-0 Vicryl interruptedly, closed skin by using 4-0 Vicryl continuous running, closed another two 5 mm trocar site to the skin only by using 4-0 Vicryl. We put the dressing on. The patient tolerated the procedure well. All the instrument, needle, and sponge count were correct x2 at the end of the case and the patient transferred to recovery room in stable condition. I attest to the content of the Intraoperative Record and any orders documented therein. Any exception s are noted below.
[2017-07-14] MEDS: HYDROmorphone INJ 0.5 MG/0.5 ML SYR IV PRN (15:54)
--- NOTE | 2017-07-14 18:34 | Progress Note ---
Internal Med Progress Note Date of Service: July 14, 2017. Provider Documentation: SUBJECTIVE: Patient s/p hernia repair. She denies acute abdominal pain. She denies chest pain or shortness of breath. OBJECTIVE: Exam: General- no acute distress Face - redness of the face resolving Eyes-EOMI ENT-nontender, no rash of neck Lungs- CTABL, no wheezing Heart- Regular rate Abdomen-soft, nontender, + bowel sounds, surgical dressing on abdomen Extremities- no edema Neuro- awake and alert ASSESSMENT & PLAN: This is a 47 year old Patient who was transferred from [facility] with concerns of hernia complication such as incarceration Incarcerated abdominal hernia -Laparoscopy, repair of spigelian hernia with mesh on 07/14/17 -clear liquid diet tonight -pain medications, antiemetic with Zofran prn Face Rash -noted to have rash of the face since the AM of 07/12/17. May be drug related rash. Patient reports receiving morphine and Tramadol from [facility] -Bob to treat face rash or itch -Rash resolving -monitor rash while on narcotic prn medications post-op DVT ppx with SCD Vital Signs: Date Time Temp Pulse Resp B/P (MAP) Pulse Ox O2 Delivery O2 Flow Rate FiO2 07/14/17 17:10 36.8 93 18 121/78 (92) 93 Room Air 07/14/17 16:01 36.9 80 17 115/74 (88) 93 Room Air 07/14/17 15:30 Room Air 07/14/17 15:05 36.9 78 16 113/78 (90) 93 Room Air 07/14/17 14:28 36.8 74 16 107/72 (84) 92 Room Air 07/14/17 14:09 94 Room Air 07/14/17 14:00 37.2 72 18 144/76 (98) 94 Room Air 07/14/17 13:40 36.5 66 16 113/76 99 Nasal Cannula 3 07/14/17 13:30 70 16 137/87 99 Nasal Cannula 3 07/14/17 13:20 64 16 156/90 99 Oxymask 10 07/14/17 13:10 68 16 168/90 98 Oxymask 10 07/14/17 13:03 37.2 76 16 155/88 98 Oxymask 10 07/14/17 07:30 Room Air 07/14/17 07:18 36.8 73 16 103/68 (80) 97 Room Air 07/13/17 23:30 Room Air 07/13/17 23:20 36.7 66 18 115/74 (88) 97 Room Air Lab Results: Results Past 24 Hours Test 07/14/17 05:23 Range/Units White Blood Count 4.62 4.8-10.8 K/uL Red Blood Count 3.88 4.2-5.4 M/uL Hemoglobin 11.6 12.0-16.0 g/dL Hematocrit 34.9 37-47 % Mean Corpuscular Volume 89.9 80-100 fL Mean Corpuscular Hemoglobin 29.9 25-34 pg Mean Corpuscular Hemoglobin Concent 33.2 32-36 g/dl Platelet Count 198 130-400 K/uL Mean Platelet Volume 10.2 7.4-10.4 fL Neutrophils (%) (Auto) 64.1 % Lymphocytes (%) (Auto) 27.7 % Monocytes (%) (Auto) 6.7 % Eosinophils (%) (Auto) 1.1 % Basophils (%) (Auto) 0.2 % Neutrophils # (Auto) 2.96 1.4-6.5 K/uL Lymphocytes # (Auto) 1.28 1.2-3.4 K/uL Monocytes # (Auto) 0.31 0.11-0.59 K/uL Eosinophils # (Auto) 0.05 0-0.5 K/uL Basophils # (Auto) 0.01 0-0.2 K/uL RDW Standard Deviation 42.9 36.4-46.3 fL RDW Coefficient of Variation 13.0 11.5-14.5 % Immature Granulocyte % (Auto) 0.2 % Immature Granulocyte # (Auto) 0.01 0.00-0.02 K/uL
[2017-07-14] MEDS: OXYCODONE/ACETAMINOPHEN 5-325 TAB PO PRN ×2 (19:40→22:56)
[2017-07-14] MEDS ORDERED: NURSING VERBAL MED ORDER ONE (20:30)
[2017-07-15] MEDS: HYDROmorphone INJ 0.5 MG/0.5 ML SYR IV PRN (01:52)
[2017-07-15 03:19] VITALS: BP 102/68; PULSE 70; TEMP 36.7; O2SAT 96
[2017-07-15] MEDS: SODIUM CHLORIDE 0.9% 1000ML 1,000 ML IV SCH (04:41)
[2017-07-15] MEDS: OXYCODONE/ACETAMINOPHEN 5-325 TAB PO PRN ×3 (04:44→13:43)
[2017-07-15] MEDS ORDERED: CEFAZOLIN SOD 2000MG/15 ML IV PUSH IV ONE (06:00)
[2017-07-15 07:08] LABS: EOS % 0.1 %; EOS ABS # 0.01 K/uL (0-0.5); HEMATOCRIT 34.4 % (37-47); HEMOGLOBIN 11.2 g/dL (12.0-16.0); IG# 0.01 K/uL (0.00-0.02); LYMPH % 17.2 %; LYMPH ABS # 1.24 K/uL (1.2-3.4); MEAN CELL VOLUME 90.8 fL (80-100); MEAN CORPUSCULAR HEMOGLOBIN 29.6 pg (25-34); MEAN CORPUSCULAR HGB CONC 32.6 g/dl (32-36); MONO % 6.1 %; MONO ABS # 0.44 K/uL (0.11-0.59); NEUT % 76.5 %; NEUT ABS # 5.51 K/uL (1.4-6.5); PLATELET COUNT 196 K/uL (130-400); RED CELL DISTRIBUTION WIDTH CV 13.2 % (11.5-14.5); RED CELL DISTRIBUTION WIDTH SD 43.5 fL (36.4-46.3); WHITE BLOOD COUNT 7.21 K/uL (4.8-10.8)
[2017-07-15 07:44] LABS: ALBUMIN 2.9 gm/dl (3.4-5.0); CALCIUM 8.2 mg/dl (8.5-10.1); CREATININE 0.59 mg/dl (0.60-1.20); POTASSIUM 3.7 mmol/L (3.5-5.1); TOTAL PROTEIN 5.9 gm/dl (6.4-8.2)
--- NOTE | 2017-07-15 07:48 | Anesthesiology Progress Note ---
Anesthesia Post Op Note Date & Time July 15, 2017 at 07:48 Vital Signs Pain Intensity: 6.5 Vital Signs Past 12 Hours Date Time Temp Pulse Resp B/P (MAP) Pulse Ox O2 Delivery O2 Flow Rate FiO2 07/15/17 03:19 36.7 70 16 102/68 (79) 96 Room Air 07/15/17 01:16 Room Air 07/14/17 22:50 36.8 68 16 102/63 (76) 96 Room Air 07/14/17 21:01 76 07/14/17 19:55 36.6 102 19 112/73 (86) 96 Room Air Notes Mental Status: alert / awake / arousable, participated in evaluation Pt Amnestic to Procedure: Yes Nausea / Vomiting: adequately controlled Pain: adequately controlled, improving with treatment Airway Patency, RR, SpO2: stable & adequate BP & HR: stable & adequate Hydration State: stable & adequate Anesthetic Complications: no major complications apparent
[2017-07-15 08:00] VITALS: BP 124/78; PULSE 74; TEMP 36.6; O2SAT 97
[2017-07-15 08:02] VITALS: O2SAT 97
[2017-07-15] MEDS ORDERED: DOCUSATE SODIUM 100 MG CAP PO SCH (10:45)
--- NOTE | 2017-07-15 10:45 | Surgery Progress Note ---
Surgery Progress Note Date of Service July 15, 2017. Subjective Post OP Day: 1 (s/p laparoscopic LLQ Spigelian hernia repair) + feeling well, + pain controlled, + diet (full liquids), No chest pain, No SOB , No bowel movement, No flatus, No nausea, No vomiting Feeling okay, moderate pain but controlled with two Percocet No nausea or vomiting + Belching no flatus or bowel movement urinating and ambulating without difficulty Objective Vital Signs: Date Time Temp Pulse Resp B/P (MAP) Pulse Ox O2 Delivery O2 Flow Rate FiO2 07/15/17 08:02 97 Room Air 07/15/17 08:00 Room Air 07/15/17 08:00 36.6 74 16 124/78 (93) 97 Room Air 07/15/17 03:19 36.7 70 16 102/68 (79) 96 Room Air 07/15/17 01:16 Room Air 07/14/17 22:50 36.8 68 16 102/63 (76) 96 Room Air 07/14/17 21:01 76 07/14/17 19:55 36.6 102 19 112/73 (86) 96 Room Air 07/14/17 17:10 36.8 93 18 121/78 (92) 93 Room Air 07/14/17 16:01 36.9 80 17 115/74 (88) 93 Room Air 07/14/17 15:30 Room Air 07/14/17 15:05 36.9 78 16 113/78 (90) 93 Room Air 07/14/17 14:28 36.8 74 16 107/72 (84) 92 Room Air 07/14/17 14:09 94 Room Air 07/14/17 14:00 37.2 72 18 144/76 (98) 94 Room Air 07/14/17 13:40 36.5 66 16 113/76 99 Nasal Cannula 3 07/14/17 13:30 70 16 137/87 99 Nasal Cannula 3 07/14/17 13:20 64 16 156/90 99 Oxymask 10 07/14/17 13:10 68 16 168/90 98 Oxymask 10 07/14/17 13:03 37.2 76 16 155/88 98 Oxymask 10 General Appearance: WD/WN, no apparent distress Head: normocephalic, atraumatic Neck: trachea midline Respiratory/Chest: no respiratory distress, no accessory muscle use Abdomen: non distended, soft, no organomegaly, no pulsatile mass, + tenderness (LLQ on palpation , appropriate post op) Incision(s): clean, dry (dressings clean and dry, incisions not inspected) Laboratory Results: Results Past 24 Hours Test 07/15/17 06:35 Range/Units White Blood Count 7.21 4.8-10.8 K/uL Red Blood Count 3.79 4.2-5.4 M/uL Hemoglobin 11.2 12.0-16.0 g/dL Hematocrit 34.4 37-47 % Mean Corpuscular Volume 90.8 80-100 fL Mean Corpuscular Hemoglobin 29.6 25-34 pg Mean Corpuscular Hemoglobin Concent 32.6 32-36 g/dl Platelet Count 196 130-400 K/uL Mean Platelet Volume 11.0 7.4-10.4 fL Neutrophils (%) (Auto) 76.5 % Lymphocytes (%) (Auto) 17.2 % Monocytes (%) (Auto) 6.1 % Eosinophils (%) (Auto) 0.1 % Basophils (%) (Auto) 0.0 % Neutrophils # (Auto) 5.51 1.4-6.5 K/uL Lymphocytes # (Auto) 1.24 1.2-3.4 K/uL Monocytes # (Auto) 0.44 0.11-0.59 K/uL Eosinophils # (Auto) 0.01 0-0.5 K/uL Basophils # (Auto) 0.00 0-0.2 K/uL RDW Standard Deviation 43.5 36.4-46.3 fL RDW Coefficient of Variation 13.2 11.5-14.5 % Immature Granulocyte % (Auto) 0.1 % Immature Granulocyte # (Auto) 0.01 0.00-0.02 K/uL Sodium Level 141 136-145 mmol/L Potassium Level 3.7 3.5-5.1 mmol/L Chloride Level 112 98-107 mmol/L Carbon Dioxide Level 23 21-32 mmol/L Anion Gap 6.0 3-11 mmol/L Blood Urea Nitrogen 6 7-18 mg/dl Creatinine 0.59 0.60-1.20 mg/dl Est Creatinine Clear Calc Drug Dose 118.1 ml/min Estimated GFR () 125.6 Estimated GFR (Non- 108.4 BUN/Creatinine Ratio 10.4 10-20 Random Glucose 95 70-99 mg/dl Calcium Level 8.2 8.5-10.1 mg/dl Total Bilirubin 0.3 0.2-1 mg/dl Aspartate Amino Transf (AST/SGOT) 16 15-37 U/L Alanine Aminotransferase (ALT/SGPT) 27 12-78 U/L Alkaline Phosphatase 54 45-117 U/L Total Protein 5.9 6.4-8.2 gm/dl Albumin 2.9 3.4-5.0 gm/dl Globulin 3.0 2.5-4.0 gm/dl Albumin/Globulin Ratio 1.0 0.9-2 Assessment & Plan POD # 1 s/p laparoscopic LLQ hernia repair with mesh -vitals stable, afebrile - moderate pain, controlled - tolerating advanced diet Plan: Continue Percocet as needed for pain continue ambulation Add stool softener advance diet as tolerated If doing well later, possible discharge this afternoon Dr. Jose has seen patient, agrees with above
--- NOTE | 2017-07-15 11:05 | Progress Note ---
Internal Med Progress Note Date of Service: July 15, 2017. Provider Documentation: SUBJECTIVE: Patient s/p hernia repair. She denies acute abdominal pain. She is ambulatory in the hallway. She denies vomiting. OBJECTIVE: Exam: General- no acute distress Face - redness of the face resolving Eyes-EOMI ENT-nontender, no rash of neck Lungs- CTABL, no wheezing Heart- Regular rate Abdomen-soft, nontender, + bowel sounds, surgical dressing on abdomen, minimal tenderness Extremities- no edema Neuro- awake and alert ASSESSMENT & PLAN: This is a 47 year old Patient who was transferred from [facility] with concerns of hernia complication such as incarceration Incarcerated abdominal hernia -Laparoscopy, repair of spigelian hernia with mesh on 07/14/17 -Patient re-assessed by general surgery on 07/15/17 -pain medications, bowel regimen Face Rash -noted to have rash of the face since the AM of 07/12/17. May be drug related rash. Patient reports receiving morphine and Tramadol from [facility] -Rafil to treat face rash or itch as needed -Rash resolving, monitor rash -will need follow up assessment with primary care doctor Discharge Instructions No heavy lifting over 20 pounds for 3 weeks No strenuous activity until cleared by surgeon No submerging incisions underwater for 2 weeks (no bathing, swimming, or hot tubs) No driving while taking narcotic pain medication or until you are pain free You may shower 4 days from your surgery day. Sponge bath and wash hair in meantime. Keep dressings clean and dry. After 4 days, you may shower and remove outer dressings. Leave steri strips on incision for 7 days and then remove. They may fall off on their own that is okay. Walking and light activity is encouraged to prevent blood clots from forming You will be given narcotic pain medication (Percocet) as needed for moderate to severe pain. Take as directed. This medication may cause drowsiness and constipation. To combat constipation: - Take daily stool softener while taking Percocet - Drink plenty of water daily - May take gentle laxative or prune juice if needed You may take extra strength Tylenol or Ibuprofen as needed for mild pain. Follow-up in surgical office in 1-2 weeks, call office at [phone] to make an appointment. Follow up with 07/17/17 12:45PM with primary care Dr. Beatriz Jones[facility] [address], [place] [address] Vital Signs: Date Time Temp Pulse Resp B/P (MAP) Pulse Ox O2 Delivery O2 Flow Rate FiO2 07/15/17 08:02 97 Room Air 07/15/17 08:00 Room Air 07/15/17 08:00 36.6 74 16 124/78 (93) 97 Room Air 07/15/17 03:19 36.7 70 16 102/68 (79) 96 Room Air 07/15/17 01:16 Room Air 07/14/17 22:50 36.8 68 16 102/63 (76) 96 Room Air 07/14/17 21:01 76 07/14/17 19:55 36.6 102 19 112/73 (86) 96 Room Air 07/14/17 17:10 36.8 93 18 121/78 (92) 93 Room Air 07/14/17 16:01 36.9 80 17 115/74 (88) 93 Room Air 07/14/17 15:30 Room Air 07/14/17 15:05 36.9 78 16 113/78 (90) 93 Room Air 07/14/17 14:28 36.8 74 16 107/72 (84) 92 Room Air 07/14/17 14:09 94 Room Air 07/14/17 14:00 37.2 72 18 144/76 (98) 94 Room Air 07/14/17 13:40 36.5 66 16 113/76 99 Nasal Cannula 3 07/14/17 13:30 70 16 137/87 99 Nasal Cannula 3 07/14/17 13:20 64 16 156/90 99 Oxymask 10 07/14/17 13:10 68 16 168/90 98 Oxymask 10 07/14/17 13:03 37.2 76 16 155/88 98 Oxymask 10 Lab Results: Results Past 24 Hours Test 07/15/17 06:35 Range/Units White Blood Count 7.21 4.8-10.8 K/uL Red Blood Count 3.79 4.2-5.4 M/uL Hemoglobin 11.2 12.0-16.0 g/dL Hematocrit 34.4 37-47 % Mean Corpuscular Volume 90.8 80-100 fL Mean Corpuscular Hemoglobin 29.6 25-34 pg Mean Corpuscular Hemoglobin Concent 32.6 32-36 g/dl Platelet Count 196 130-400 K/uL Mean Platelet Volume 11.0 7.4-10.4 fL Neutrophils (%) (Auto) 76.5 % Lymphocytes (%) (Auto) 17.2 % Monocytes (%) (Auto) 6.1 % Eosinophils (%) (Auto) 0.1 % Basophils (%) (Auto) 0.0 % Neutrophils # (Auto) 5.51 1.4-6.5 K/uL Lymphocytes # (Auto) 1.24 1.2-3.4 K/uL Monocytes # (Auto) 0.44 0.11-0.59 K/uL Eosinophils # (Auto) 0.01 0-0.5 K/uL Basophils # (Auto) 0.00 0-0.2 K/uL RDW Standard Deviation 43.5 36.4-46.3 fL RDW Coefficient of Variation 13.2 11.5-14.5 % Immature Granulocyte % (Auto) 0.1 % Immature Granulocyte # (Auto) 0.01 0.00-0.02 K/uL Sodium Level 141 136-145 mmol/L Potassium Level 3.7 3.5-5.1 mmol/L Chloride Level 112 98-107 mmol/L Carbon Dioxide Level 23 21-32 mmol/L Anion Gap 6.0 3-11 mmol/L Blood Urea Nitrogen 6 7-18 mg/dl Creatinine 0.59 0.60-1.20 mg/dl Est Creatinine Clear Calc Drug Dose 118.1 ml/min Estimated GFR () 125.6 Estimated GFR (Non- 108.4 BUN/Creatinine Ratio 10.4 10-20 Random Glucose 95 70-99 mg/dl Calcium Level 8.2 8.5-10.1 mg/dl Total Bilirubin 0.3 0.2-1 mg/dl Aspartate Amino Transf (AST/SGOT) 16 15-37 U/L Alanine Aminotransferase (ALT/SGPT) 27 12-78 U/L Alkaline Phosphatase 54 45-117 U/L Total Protein 5.9 6.4-8.2 gm/dl Albumin 2.9 3.4-5.0 gm/dl Globulin 3.0 2.5-4.0 gm/dl Albumin/Globulin Ratio 1.0 0.9-2
[2017-07-15] MEDS ORDERED: SENNA 8.6 MG TAB PO STA (11:06)
[2017-07-15] MEDS ORDERED: SENN-61 PO (11:08)
[2017-07-15] MEDS ORDERED: CLC100 PO (11:08)
[2017-07-15] MEDS ORDERED: DIPH25CA65 PO (11:11)
--- NOTE | 2017-07-15 11:15 | Consultant Recommendations ---
Java Lead Developer Recommendations Date of Service July 15, 2017. Java Lead Developer Recommendations No heavy lifting over 20 pounds for 3 weeks No strenuous activity until cleared by surgeon No submerging incisions underwater for 2 weeks (no bathing, swimming, or hot tubs) No driving while taking narcotic pain medication or until you are pain free You may shower 4 days from your surgery day. Sponge bath and wash hair in meantime. Keep dressings clean and dry. After 4 days, you may shower and remove outer dressings. Leave steri strips on incision for 7 days and then remove. They may fall off on their own that is okay. Walking and light activity is encouraged to prevent blood clots from forming You will be given narcotic pain medication (Percocet) as needed for moderate to severe pain. Take as directed. This medication may cause drowsiness and constipation. To combat constipation: - Take daily stool softener while taking Percocet - Drink plenty of water daily - May take gentle laxative or prune juice if needed You may take extra strength Tylenol or Ibuprofen as needed for mild pain. Follow-up in surgical office in 1-2 weeks, call office at [phone] to make an appointment.
[2017-07-15] MEDS ORDERED: OXYC-57 PO (11:16)
--- NOTE | 2017-07-15 11:33 | Discharge Instructions ---
Discharge Instructions Date of Service July 15, 2017. Admission Reason for Admission: Incarcerated Hernia Discharge Discharge Diagnosis / Problem: incarcerated hernia, Laparoscopic Spigelain Hernia Repair with Mesh, rash Discharge Goals Goal(s): Decrease discomfort, Improve function Activity Recommendations Activity Limitations: per Instructions/Follow-up section . Instructions / Follow-Up Instructions / Follow-Up This is a 47 year old Patient who was transferred from [facility] with concerns of hernia complication such as incarceration Incarcerated abdominal hernia -Laparoscopy, repair of spigelian hernia with mesh on 07/14/17 -Patient re-assessed by general surgery on 07/15/17 -pain medications, bowel regimen Face Rash -noted to have rash of the face since the AM of 07/12/17. May be drug related rash. Patient reports receiving morphine and Tramadol from [facility] -Benadryl to treat face rash or itch as needed -Rash resolving, monitor rash -will need follow up assessment with primary care doctor Discharge Instructions No heavy lifting over 20 pounds for 3 weeks No strenuous activity until cleared by surgeon No submerging incisions underwater for 2 weeks (no bathing, swimming, or hot tubs) No driving while taking narcotic pain medication or until you are pain free You may shower 4 days from your surgery day. Sponge bath and wash hair in meantime. Keep dressings clean and dry. After 4 days, you may shower and remove outer dressings. Leave steri strips on incision for 7 days and then remove. They may fall off on their own that is okay. Walking and light activity is encouraged to prevent blood clots from forming You will be given narcotic pain medication (Percocet) as needed for moderate to severe pain. Take as directed. This medication may cause drowsiness and constipation. To combat constipation: - Take daily stool softener while taking Percocet - Drink plenty of water daily - May take gentle laxative or prune juice if needed You may take extra strength Tylenol or Ibuprofen as needed for mild pain. Follow-up in surgical office in 1-2 weeks, call office at [phone] to make an appointment. Follow up with 07/17/17 12:45PM with primary care Dr. Beatriz Jones'[address], [place] [address] Current Hospital Diet Patient's current hospital diet: Regular Diet Discharge Diet Recommended Diet: Regular Diet Procedures Procedures Performed: Laparoscopic Spigelain Hernia Repair with Mesh Pending Studies Studies pending at discharge: no Laboratory Results 07/15/17 06:35 Red Blood Count 3.79, Mean Corpuscular Volume 90.8, Mean Corpuscular Hemoglobin 29.6, Mean Corpuscular Hemoglobin Concent 32.6, Mean Platelet Volume 11.0, Neutrophils (%) (Auto) 76.5, Lymphocytes (%) (Auto) 17.2, Monocytes (%) (Auto) 6.1, Eosinophils (%) (Auto) 0.1, Basophils (%) (Auto) 0.0, Neutrophils # (Auto) 5.51, Lymphocytes # (Auto) 1.24, Monocytes # (Auto) 0.44, Eosinophils # (Auto) 0.01, Basophils # (Auto) 0.00 07/15/17 06:35 Test 07/12/17 08:15 07/13/17 07:45 07/15/17 06:35 Thyroid Stimulating Hormone (TSH) 2.140 uIu/ml (0.300-4.500) Magnesium Level 1.8 mg/dl (1.8-2.4) White Blood Count 7.21 K/uL (4.8-10.8) Red Blood Count 3.79 M/uL (4.2-5.4) Hemoglobin 11.2 g/dL (12.0-16.0) Hematocrit 34.4 % (37-47) Mean Corpuscular Volume 90.8 fL (80-100) Mean Corpuscular Hemoglobin 29.6 pg (25-34) Mean Corpuscular Hemoglobin Concent 32.6 g/dl (32-36) Platelet Count 196 K/uL (130-400) Mean Platelet Volume 11.0 fL (7.4-10.4) Neutrophils (%) (Auto) 76.5 % Lymphocytes (%) (Auto) 17.2 % Monocytes (%) (Auto) 6.1 % Eosinophils (%) (Auto) 0.1 % Basophils (%) (Auto) 0.0 % Neutrophils # (Auto) 5.51 K/uL (1.4-6.5) Lymphocytes # (Auto) 1.24 K/uL (1.2-3.4) Monocytes # (Auto) 0.44 K/uL (0.11-0.59) Eosinophils # (Auto) 0.01 K/uL (0-0.5) Basophils # (Auto) 0.00 K/uL (0-0.2) RDW Standard Deviation 43.5 fL (36.4-46.3) RDW Coefficient of Variation 13.2 % (11.5-14.5) Immature Granulocyte % (Auto) 0.1 % Immature Granulocyte # (Auto) 0.01 K/uL (0.00-0.02) Anion Gap 6.0 mmol/L (3-11) Est Creatinine Clear Calc Drug Dose 118.1 ml/min Estimated GFR () 125.6 Estimated GFR (Non- 108.4 BUN/Creatinine Ratio 10.4 (10-20) Calcium Level 8.2 mg/dl (8.5-10.1) Total Bilirubin 0.3 mg/dl (0.2-1) Aspartate Amino Transf (AST/SGOT) 16 U/L (15-37) Alanine Aminotransferase (ALT/SGPT) 27 U/L (12-78) Alkaline Phosphatase 54 U/L (45-117) Total Protein 5.9 gm/dl (6.4-8.2) Albumin 2.9 gm/dl (3.4-5.0) Globulin 3.0 gm/dl (2.5-4.0) Albumin/Globulin Ratio 1.0 (0.9-2) Medical Emergencies . Who to Call and When: Medical Emergencies: If at any time you feel your situation is an emergency, please call 911 immediately. . Non-Emergent Contact Non-Emergency issues call your: Primary Care Provider, Surgeon Call Non-Emergent contact if: you have any medication questions . . "Provider Documentation" section prepared by Toro Edouard. . Pipe Bender Recommendations Pipe Bender Recommendations: No heavy lifting over 20 pounds for 3 weeks No strenuous activity until cleared by surgeon No submerging incisions underwater for 2 weeks (no bathing, swimming, or hot tubs) No driving while taking narcotic pain medication or until you are pain free You may shower 4 days from your surgery day. Sponge bath and wash hair in meantime. Keep dressings clean and dry. After 4 days, you may shower and remove outer dressings. Leave steri strips on incision for 7 days and then remove. They may fall off on their own that is okay. Walking and light activity is encouraged to prevent blood clots from forming You will be given narcotic pain medication (Percocet) as needed for moderate to severe pain. Take as directed. This medication may cause drowsiness and constipation. To combat constipation: - Take daily stool softener while taking Percocet - Drink plenty of water daily - May take gentle laxative or prune juice if needed You may take extra strength Tylenol or Ibuprofen as needed for mild pain. Follow-up in surgical office in 1-2 weeks, call office at [phone] to make an appointment.
--- NOTE | 2017-07-15 11:34 | Discharge Summary ---
Discharge Summary Date of Service July 15, 2017. Discharge Summary Admission Date: July 11, 2017 at 21:44 Discharge Date: July 15, 2017 Discharge Disposition: Home Principal Diagnosis: incarcerated hernia, Laparoscopic Spigelain Hernia Repair with Mesh Secondary Diagnoses/Problems: Rash (face) Consultations: general surgery consultation Medication Reconciliation New Medications: Diphenhydramine Hcl (Benadryl Allergy) 25 Mg Cap 1 CAP PO DAILY PRN for rash/itch for 5 Days, #5 CAP 1 Refill Oxycodone/Acetaminophen 5MG/325MG (Percocet 5MG/325MG) Tab 1-2 TABLETS PO Q4H PRN for Pain, #36 TAB Senna (Senokot) 8.6 Mg Tab 1 TAB PO DAILY for 30 Days, #30 TAB Docusate Sodium (Docusate Sodium) 100 Mg Cap 100 MG PO BID for 30 Days, #60 CAP Continued Medications: Ibuprofen Tab (Advil) 200 Mg Tab 200 MG PO Q4H for Pain, TAB Discontinued Medications: Tramadol HCl (Tramadol HCl) 50 Mg Tab 50 MG PO Q6 for Pain Admission Information HPI (per Admitting provider): CHIEF COMPLAINT: Incarcerated hernia. HISTORY OF PRESENT ILLNESS: History obtained from patient and records. Medical history significant for past tobacco abuse. Today patient had achy left-sided abdominal pain. Thought it was her ovarian cyst for which she takes OCPs. Worse than usual. Some nausea, no emesis. Patient seen at [facility]. A CAT scan of the abdomen and pelvis showed a 3 cm left lower quadrant spigelian hernia containing loop of descending colon, no obstruction, mild inflammation. Incarceration should be considered. Enlarging uterine masses. Patient transferred to [facility] for Surgery evaluation. Patient currently comfortable in the room. MEDICAL HISTORY: As above. SURGERIES: She has had appendectomy, tonsillectomy, tubal ligation, varicose vein surgery. HOME MEDICATIONS: Include Ultram, Sprintec, multivitamins. ALLERGIES: ALLERGIC TO CODEINE. FAMILY HISTORY: There is a family history of migraine, diabetes. PERSONAL AND SOCIAL HISTORY: Past tobacco use. 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 REVIEW OF SYSTEMS: As per HPI, all 10 systems reviewed. All other ROS negative. Physical Exam (per Admitting): PHYSICAL EXAMINATION: VITAL SIGNS: Blood pressure was noted to be 121/85, pulse rate 90, RR 18 T 37 O2 sats 94 room air. GENERAL: Noted to be pleasant, no respiratory distress, obese. SKIN: Normal color, warm. HEENT: [place] palpebral conjunctivae. No ptosis. Dry mucosa. NECK: Short, supple. CHEST: Decreased effort. No tenderness HEART: Regular rate and rhythm, no murmur. ABDOMEN: Some distention, abdominal striae noted, minimal left lower quadrant tenderness EXTREMITIES: Minimal LE edema. No tenderness. No other gross deformities NEUROLOGIC: Coherent. No gross focality. Hospital Course This is a 47 year old Patient who was transferred from [facility] with concerns of hernia complication such as incarceration Incarcerated abdominal hernia -Laparoscopy, repair of spigelian hernia with mesh on 07/14/17 -Patient re-assessed by general surgery on 07/15/17 -pain medications, bowel regimen Face Rash -noted to have rash of the face since the AM of 07/12/17. May be drug related rash. Patient reports receiving morphine and Tramadol from [facility] -Rafil to treat face rash or itch as needed -Rash resolving, monitor rash -will need follow up assessment with primary care doctor Discharge Instructions No heavy lifting over 20 pounds for 3 weeks No strenuous activity until cleared by surgeon No submerging incisions underwater for 2 weeks (no bathing, swimming, or hot tubs) No driving while taking narcotic pain medication or until you are pain free You may shower 4 days from your surgery day. Sponge bath and wash hair in meantime. Keep dressings clean and dry. After 4 days, you may shower and remove outer dressings. Leave steri strips on incision for 7 days and then remove. They may fall off on their own that is okay. Walking and light activity is encouraged to prevent blood clots from forming You will be given narcotic pain medication (Percocet) as needed for moderate to severe pain. Take as directed. This medication may cause drowsiness and constipation. To combat constipation: - Take daily stool softener while taking Percocet - Drink plenty of water daily - May take gentle laxative or prune juice if needed You may take extra strength Tylenol or Ibuprofen as needed for mild pain. Follow-up in surgical office in 1-2 weeks, call office at [phone] to make an appointment. Follow up with 07/17/17 12:45PM [facility] [address], [place] [address] Total time spent on discharge = 60 minutes This includes examination of the patient, discharge planning, medication reconciliation, and communication with other providers. Discharge Instructions see above
[2017-07-15 11:59] VITALS: BP 124/78; PULSE 74; TEMP 36.6; O2SAT 97
[2017-07-16] MEDS ORDERED: SENNA 8.6 MG TAB PO SCH (09:00)
== END 2017-07-15 13:45 | disposition home or self-care (01) | DRG 355 ==
LOC: C.MSW 21:44
PROVIDERS: ADMIT Internal Medicine; ATTEND Hospitalist
PROC: 0WQF4ZZ Repair Abdominal Wall, Percutaneous Endoscopic Approach (ICD-10-PCS; principal; 2017-07-14 09:15)
DX: K43.0 Incisional hernia with obstruction, without gangrene (principal); N83.209 Unspecified ovarian cyst, unspecified side; R21 Rash and other nonspecific skin eruption; Z87.891 Personal history of nicotine dependence; Z98.51 Tubal ligation status; Z83.3 Family history of diabetes mellitus; Z88.5 Allergy status to narcotic agent; Z90.49 Acquired absence of other specified parts of digestive tract